=== PATIENT | male | born 1995 | race Two or more races ===

== ENCOUNTER 2022-04-05 03:04 | Emergency (ER) | payer SELFPAY ==
[~2022-04-05] VITALS: Ht 175.3 cm; Wt 90.7 kg
[2022-04-05] MEDS ORDERED: ONDANSETRON ODT 4 MG TAB.RAPDIS ONE (04:11)
[2022-04-05] MEDS ORDERED: HYDROMORPHONE 1 MG/1 ML DISP.SYRIN ONE (04:11)
[2022-04-05] MEDS ORDERED: ONDANSETRON ODT 4 MG TAB.RAPDIS SL ONE (04:15)
[2022-04-05] MEDS ORDERED: HYDROMORPHONE 1 MG/1 ML DISP.SYRIN IM ONE (04:15)
--- NOTE | 2022-04-05 04:15 | NUR ---
Dr Davis at bedside MSE in progress
[2022-04-05] MEDS ORDERED: HYDR-4209 PO (06:00)
--- NOTE | 2022-04-05 07:05 | NUR ---
Recieved pt in bed, resting comfortably w/ both eyes closed. NAD at this time.
--- NOTE | 2022-04-05 10:00 | NUR ---
Pt is awake, A/O x4. Walked w/ steady gait to bathroom.
--- NOTE | 2022-04-05 10:07 | NUR ---
Patient discharged to home in stable condition. Written and verbal after care instructions given. Patient verbalizes understanding of instructions. Stressed follow up or return to ER for worsening s/s. Pt walked to waiting room waiting for his ride home.
[2022-04-05 10:08] VITALS: BP 109/60
== END 2022-04-05 10:10 | disposition home or self-care (01) ==
LOC: ER 03:09
DX: S02.652A Fracture of angle of left mandible, initial encounter for closed fracture (principal); V18.4XXA Pedal cycle driver injured in noncollision transport accident in traffic accident, initial encounter; Y93.55 Activity, bike riding; Y92.89 Other specified places as the place of occurrence of the external cause; F17.210 Nicotine dependence, cigarettes, uncomplicated
CPT/HCPCS: 99283; 70110; 96372; J1170; A4663; Q0162

== ENCOUNTER 2022-06-14 07:15 | Emergency (ER) | payer MEDICAID ==
[~2022-06-14] VITALS: Ht 175.3 cm; Wt 90.7 kg
[~2022-06-14 07:15] MED LIST: HYDR-4209 PO
--- NOTE | 2022-06-14 07:35 | NUR ---
DR Thomas at the bedside3 for MSE.
[2022-06-14] MEDS ORDERED: CLINDAMYCIN PHOSPHATE IV 600 MG in IV DEXTROSE 5% 100 ML IV ONE (07:45)
[2022-06-14] MEDS ORDERED: CLINDAMYCIN 600 MG PIGGYBACK**ER OMNI IV ONE (07:50)
[2022-06-14 08:05] LABS: HEMATOCRIT 47.2 % (36.7-47.1); MEAN CORPUSCULAR HEMOGLOBIN 30.4 uug (23.8-33.4); MEAN CORPUSCULAR VOLUME 90.4 fL (73.0-96.2); PLATELET COUNT (AUTO) 264 K/uL (152-348)
[2022-06-14] MEDS ORDERED: IV NORMAL SALINE 250 ML IV ONE (08:11)
[2022-06-14] MEDS ORDERED: SWABABLE VALVE TRANSFER SET EA MC ONE (08:11)
[2022-06-14] MEDS ORDERED: IOHEXOL 300MG/ML 100 ML INFUS..BTL ONE (08:11)
[2022-06-14 08:26] LABS: BILIRUBIN,TOTAL 0.4 mg/dL (0.2-1.0); POTASSIUM 4.3 mmol/L (3.5-5.1); TOTAL PROTEIN, SERUM 8.1 g/dL (6.4-8.2)
[2022-06-14] MEDS ORDERED: ACETAMINOPHEN ES 500 MG TABLET ONE (08:48)
[2022-06-14] MEDS ORDERED: ACETAMINOPHEN 325 MG TABLET PO ONE (09:00)
--- NOTE | 2022-06-14 09:48 | NUR ---
PREPARING CD FOR THE PATIENT, WITH CAT SCAN IMAGES BEFORE HE IS DISCHARGED. LEONIDAS Cota
[2022-06-14] MEDS ORDERED: HYDR-4209 PO ×2 (09:52→10:06)
[2022-06-14] MEDS ORDERED: CLIN300C12 PO (09:52)
--- NOTE | 2022-06-14 12:10 | NUR ---
IV removed. Catheter intact and site benign. Pressure and 4x4 gauze applied to site. No bleeding noted.
[2022-06-14 12:13] VITALS: BP 112/60
--- NOTE | 2022-06-14 12:13 | NUR ---
Patient discharged to home in stable condition. Written and verbal after care instructions given. Patient verbalizes understanding of instructions. Stressed follow up or return to ER for worsening s/s.
== END 2022-06-14 12:14 | disposition home or self-care (01) ==
LOC: ER 07:15
DX: J34.0 Abscess, furuncle and carbuncle of nose (principal); S02.609D Fracture of mandible, unspecified, subsequent encounter for fracture with routine healing; X58.XXXD Exposure to other specified factors, subsequent encounter; F17.210 Nicotine dependence, cigarettes, uncomplicated
CPT/HCPCS: 99285; 96365; 70487; 80053; 85025; 36415; J3490 ×2; Q9967; A4663; A9150